=== PATIENT | female | born 1970 | race Native Hawaiian/Other Pacific Islander ===

== ENCOUNTER 2018-11-09 08:46 | Day surgery (SDC) | payer BC ==
[~2018-11-09] VITALS: Ht 149.9 cm; Wt 81.2 kg
== END 2018-11-09 11:30 | disposition home or self-care (01) ==
LOC: OR 08:46
PROC: 3E0R33Z Introduction of Anti-inflammatory into Spinal Canal, Percutaneous Approach (ICD-10-PCS; principal; 2018-11-09)
PROC: B01BYZZ Fluoroscopy of Spinal Cord using Other Contrast (ICD-10-PCS; 2018-11-09)
DX: M50.123 Cervical disc disorder at C6-C7 level with radiculopathy (principal)
CPT/HCPCS: J1020

== ENCOUNTER 2018-12-06 06:46 | Day surgery (SDC) | payer BC ==
[~2018-12-06] VITALS: Ht 30.5 cm; Wt 0.5 kg
== END 2018-12-06 08:50 | disposition home or self-care (01) ==
LOC: OR 06:46
PROC: 3E0R33Z Introduction of Anti-inflammatory into Spinal Canal, Percutaneous Approach (ICD-10-PCS; principal; 2018-12-06)
PROC: B01BYZZ Fluoroscopy of Spinal Cord using Other Contrast (ICD-10-PCS; 2018-12-06)
DX: M50.123 Cervical disc disorder at C6-C7 level with radiculopathy (principal)
CPT/HCPCS: J1020

== ENCOUNTER 2019-01-10 12:23 | Day surgery (SDC) | payer BC ==
[~2019-01-10] VITALS: Ht 149.9 cm; Wt 83.0 kg
== END 2019-01-10 16:10 | disposition home or self-care (01) ==
LOC: OR 12:23
PROC: 3E0R33Z Introduction of Anti-inflammatory into Spinal Canal, Percutaneous Approach (ICD-10-PCS; principal; 2019-01-10)
PROC: B01BYZZ Fluoroscopy of Spinal Cord using Other Contrast (ICD-10-PCS; 2019-01-10)
DX: M50.123 Cervical disc disorder at C6-C7 level with radiculopathy (principal)
CPT/HCPCS: J1020

== ENCOUNTER 2019-03-21 08:28 | Day surgery (SDC) | payer BC | END 2019-03-21 10:15 | disposition home or self-care (01) | LOC: OR 08:28 | PROC: 3E0R33Z Introduction of Anti-inflammatory into Spinal Canal, Percutaneous Approach (ICD-10-PCS; principal; 2019-03-21) | PROC: 3E0R3BZ Introduction of Anesthetic Agent into Spinal Canal, Percutaneous Approach (ICD-10-PCS; 2019-03-21) | DX: M53.3 Sacrococcygeal disorders, not elsewhere classified (principal); M46.1 Sacroiliitis, not elsewhere classified; M47.818 Spondylosis without myelopathy or radiculopathy, sacral and sacrococcygeal region | CPT/HCPCS: J1020; J3490 ==